=== PATIENT | male | born 1985 | race Two or more races ===

== ENCOUNTER 2024-04-15 06:20 | Emergency (ER) | payer MEDICAID, SELFPAY ==
[2024-04-15] VITALS (8 sets, daily range): BP systolic 114–155; BP diastolic 88–98; PULSE 82–100; RESP 13–94; TEMP 36.7–36.9; O2SAT 90–95; BMI 45.9
--- NOTE | 2024-04-15 06:40 | XR_ITS ---
Examination: PA lateral chest 2 views Technique: Upright PA lateral chest 2 views Exam date and time: April 15, 2024 at 0716 hrs. Indications: Coughing beginning 2 weeks ago. Findings: Atelectasis and/or pneumonia in the lingular segment left upper lobe Right lung clear Normal heart size Impression: Atelectasis and/or pneumonia in the lingular segment left upper lobe, clinical correlation advised
--- NOTE | 2024-04-15 06:44 | PD.EDRME ---
Rapid Medical Screening Exam [facility] Arrival date/time: 04/15/24 06:20 38-year-old male with no known medical history presents to the emergency room with a chief complaint of difficulty breathing, difficulty swallowing, and a swollen uvula. Patient states his symptoms began this morning when he woke up. Patient states she has had URI signs and symptoms for the last week including difficulty breathing, coughing, congestion, intermittent fevers. I have greeted and performed a focused initial assessment of this patient. A comprehensive ED assessment and evaluation of the patient, analysis of all test results, and completion of the medical decision making process will be conducted by additional ED providers. Chief Complaint: Dental/Oral/Throat Time Seen by Provider: 04/15/24 06:30 Vital signs: Vital Signs Temperature 98.3 F 04/15/24 06:30 Pulse Rate 85 04/15/24 06:30 Respiratory Rate 18 04/15/24 06:30 Blood Pressure 155/98 H 04/15/24 06:30 Pulse Oximetry (%) 93 L 04/15/24 06:30 Oxygen Delivery Method Room Air 04/15/24 06:30 Vital signs reviewed by provider: Yes
[2024-04-15 07:25] LABS: Strep A Rapid Negative (Negative)
[2024-04-15] MEDS: DEXAMETHASONE SOD PHOS INJ 10 MG/ML VIAL PO (07:39)
[2024-04-15] MEDS: cefTRIAXone 1,000 MG, LIDOCAINE 1% 20 ML 2.1 ML IM (07:40)
--- NOTE | 2024-04-15 08:36 | PD.EDADULT ---
ED General RME/HPI General Chief complaint: Dental/Oral/Throat Stated complaint: THE THING IN THE BACK OF MY THROAT IS SWOLLEN Time Seen by Provider: 04/15/24 06:30 Arrival date/time: 04/15/24 06:20 RME / HPI RME / HPI narrative: 04/15/24 06:20 38-year-old male with no known medical history presents to the emergency room with a chief complaint of difficulty breathing, difficulty swallowing, and a swollen uvula. Patient states his symptoms began this morning when he woke up. Patient states she has had URI signs and symptoms for the last week including difficulty breathing, coughing, congestion, intermittent fevers. I have greeted and performed a focused initial assessment of this patient. A comprehensive ED assessment and evaluation of the patient, analysis of all test results, and completion of the medical decision making process will be conducted by additional ED providers. DR. MOTA MAIN ED EVALUATION: 38 year old male with no past medical history except cocaine abuse (last used in the last 2 weeks) presents to the Emergency Department with complaints of sore throat, back of the throat swelling, fevers intermittently for last 2 weeks, and a productive cough. He does have sick contacts, his father was admitted for some respiratory disease, thinks he had the flu. Denies any shortness of breath or other symptoms at this time. Related Data Previous Rx's ?Medication ?Instructions ?Recorded albuterol sulfate 90 mcg/actuation 2 - 3 puff inhalation Q3H PRN 04/15/24 aerosol inhaler shortness of breath or wheezing #8.5 grams azithromycin 250 mg tablet See Rx Instructions PO .COMPLEX #6 04/15/24 (Zithromax Z-Shaka) tabs prednisone 20 mg tablet 40 mg (2 x 20 mg) PO QDAY Asthma 5 04/15/24 days #10 tabs Allergies Allergy/AdvReac Type Severity Reaction Status Date / Time No Known Allergies Allergy Verified 04/15/24 06:22 Review of Systems Review of Systems Systems Reviewed: All systems reviewed, normal except as documented Narrative Review of Systems: GEN: + intermittently fevers, no chills, no weight loss EYES: No discharge, no visual changes, no pain HEENT: No ear pain, no congestion, + sore throat, + back of the throat swelling PULM: No shortness of breath, + cough, + congestion CV: No chest pain, no dyspnea on exertion, no palpitations GI: No nausea, no vomiting, no diarrhea, no pain, no constipation : No frequency, no urgency and no dysuria MUSC/SKEL: No joint pain, no back pain SKIN: No rash PSYCH: No hallucinations, no depression HEME/LYMPH: No easy bleeding or bruising tendencies NEURO: No weakness, no headache Past Medical History Past Medical History GASTROINTESTINAL: 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 O2 sats mid to low 90s on room air the patient is non-toxic, in no apparent distress and appears healthy with a patent airway, no respiratory distress and has no apparent circulatory problems. Head & Scalp: Normocephalic, atraumatic. Face: Appears normal and is without lesions, deformity. Ears: Left external pinna appears normal. Right external pinna appears normal. Eyes: The sclera is anicteric. No obvious photophobia. The Left and Right Orbit/Lid/Conjunctiva appears normal without swelling, discoloration or injection. Nose: The nose is without deformity, discharge or tenderness; Throat: The uvula and the soft palate have erythema along with of bilateral tonsillar fossa's with no exudates seen. Airway is patent there is no uvular deviation. The tongue appears normal. Neck: The neck is supple and no apparent mass or adenopathy. Chest: The chest wall is normal in size and symmetry and has no chest wall tenderness or crepitus. The patient displays normal ventilator effort has coughing when takes deep breath and obvious wheezes are heard in the right base greater than the left. No bronchial breath sounds are heard. Cardiovascular: Regular rate and rhythm; No murmurs, rubs, or gallops; Gastrointestinal: The abdomen appears normal. No obvious hernias or mass. The abdomen is soft and benign, non-distended, with no pain, no guarding and no rebound tenderness. Bowel sounds are present and normal sounding. No CVA tenderness. Genitourinary: Back/Spine: Normal inspection Extremities/Musculoskeletal/lymphatic: The bilateral upper and lower extremities are warm. There is no evidence of arterial insufficiency. There is no evidence of venous insufficiency/edema. The patient spontaneously moves bilateral upper and lower extremities with no pain and no limitation of movement. There is no apparent, injury or trauma. Skin: The skin is warm, dry and intact. No rashes. No petechia. No purpura. No abnormal bruising. The color is appropriate with no cyanosis. Mental status/Psychiatric: Mental status is appropriate for age. The patient has no apparent delusions, visual hallucinations, no apparent audible hallucinations. The patient has no apparent suicidal thoughts/ideation and no apparent homicidal thoughts/ideation. Neurological: The patient is awake, alert, interactive, cordial, cooperative and is oriented to name and situation. The patient follows commands and answers historical question with no impairment. There is no visual disturbance apparent. The pupils are equal and reactive bilaterally with normal eye movements and no diplopia The bilateral upper and lower extremities have normal strength, normal range of motion and normal functioning. The gait, station and balance appear to be baseline with no acute change Course Quality Measures none Orders Category Date Time Status Bedside COVID-19 Antigen Test NOW Care 04/15/24 06:40 Completed Bedside Influenza A&B Antigen Test NOW Care 04/15/24 06:40 Completed Capper Machine Operator STAT Care 04/15/24 08:47 Active Continuous Pulse Oximetry STAT Care 04/15/24 08:47 Completed Incentive Spirometry Treatment NOW Care 04/15/24 09:27 Active Miscellaneous Nursing Order NOW Care 04/15/24 08:47 Active XR chest 2V Stat Exams 04/15/24 06:40 Completed B-Type Natriuretic Peptide Stat Lab 04/15/24 09:00 Completed Blood Culture (Lab) Stat Lab 04/15/24 09:15 Received CBC Stat Lab 04/15/24 09:00 Completed Comprehensive Metabolic Panel Stat Lab 04/15/24 09:00 Completed Lactate (Lactic Acid) Stat Lab 04/15/24 09:00 Completed Magnesium Stat Lab 04/15/24 09:00 Completed Strep A Rapid Stat Lab 04/15/24 06:47 Completed Troponin I Stat Lab 04/15/24 09:00 Completed Urinalysis Stat Lab 04/15/24 10:58 Completed Venous Blood Gas Stat Lab 04/15/24 09:00 Completed ALBUTEROL RT 0.5ml [Proventil Rt 0.5ml] Med 04/15/24 08:46 Discontinued 10 mg INH X1 ONE Dexamethasone Inj [Decadron Inj] Med 04/15/24 06:40 Discontinued 10 mg PO X1 ONE Sodium Chloride Rt Magalys 0.9% [NS Rt Magalys 0.9%] Med 04/15/24 08:46 Active 3 ml INH PRN PRN cefTRIAXone [Rocephin] 1,000 mg Med 04/15/24 06:44 Discontinued Lidocaine 1% 20 ml [Xylocaine 1% 20 ML] 2.1 ml IM X1 Vital Signs Vital signs: Vital Signs Temperature 98.3 F 04/15/24 06:30 Pulse Rate 85 04/15/24 06:30 Respiratory Rate 18 04/15/24 06:30 Blood Pressure 155/98 H 04/15/24 06:30 Pulse Oximetry (%) 93 L 04/15/24 06:30 Oxygen Delivery Method Room Air 04/15/24 06:30 [facility] Patient data External records reviewed:: None (no previous visits) Clinical information provided by:: patient Social determinants that could affect healthcare access:: substance use (cocaine) Patient has the following chronic illnesses:: Denies any PMHx, surgeries, daily medications, or known allergies. How is presenting disease/condition affected by chronic disease/condition?: no chronic disease Evaluation data The following diagnostics were reviewed and interpreted by me:: lab results and radiology exam(s) Lab and/or radiology exams considered but not ordered:: none Interpretation Summary: See above under [facility] narrative. RADIOLOGY Procedure(s): XR chest 2V Accession Number(s): [id number] cc: Solo Jo; Abilio Clark MD; Dariela Leo NP~ Examination: PA lateral chest 2 views Technique: Upright PA lateral chest 2 views Exam date and time: April 15, 2024 at 0716 hrs. Indications: Coughing beginning 2 weeks ago. Findings: Atelectasis and/or pneumonia in the lingular segment left upper lobe Right lung clear Normal heart size Impression: Atelectasis and/or pneumonia in the lingular segment left upper lobe, clinical correlation advised Dictated By: Abilio Clark MD Medications Medications considered but not ordered:: none Medication administrations:: Medication Administration History Sodium Chloride (Sodium Chloride Rt Magalys 0.9% 3 Ml Nebu) 3 ml INH PRN PRN PRN Reason: SOLN Stop: 05/15/24 08:45 Last Admin: 04/15/24 09:02 Dose: 3 ml Documented By: DAILY Discontinued Medications Albuterol (Albuterol Rt 2.5 Mg/0.5 Ml Nebu) 10 mg INH X1 ONE Stop: 04/15/24 08:47 Last Admin: 04/15/24 09:02 Dose: 10 mg Documented By: DAILY Ceftriaxone Sodium 1,000 mg/ (Lidocaine HCl 2.1 ml) 0 mg IM X1 ONE Stop: 04/15/24 06:45 Last Admin: 04/15/24 07:40 Dose: 2.1 mg Documented By: KEMAL Dexamethasone Sodium Phosphate (Dexamethasone Sod Phos Inj 10 Mg/Ml Vial) 10 mg PO X1 ONE Stop: 04/15/24 06:41 Last Admin: 04/15/24 07:39 Dose: 10 mg Documented By: KEAML Comments: given orally see above Consultations Consultation(s) initiated? (list below): No Diagnosis Differential Diagnosis ED Complaint MDM: pneumonia, COVID, Influenza, sepsis Most likely diagnosis given after review of the tests above:: See below Admission Indicated Admission indicated?: not indicated Explain why admission is indicated or not indicated:: Patient has no emergent abnormalities on his studies and can be managed on an outpatient basis. Admission Request Was there a request for admission?: No Disposition Plan Disposition Plan: Discharge Discharge Attestation Discharge Attestation: The patient and all family members were given an opportunity to ask questions and understood the discharge instructions. Discharge instructions specifically effects, indications for sooner follow up or return to the emergency department, and the expected course of current diagnosis. Patient condition: Stable Medical Decision Making MDM Narrative MDM Narrative: I, Carlita Pritchett, am scribing for and in the presence of Dr. Mota. Patient 38-year-old who comes in with erythema on his soft palate and uvula with some swelling but no airway compromise. Who also has had a cough for 2 weeks and has left lower lobe either within atelectasis and/or consolidation but more impressively is got some mild wheezing in the bases. I think he would benefit from a breathing treatment and this will help with his 2 weeks old cough patient does admit to using cocaine. Because of this to get some additional lab studies Fortunately patient's O2 sats are within normal limits. Does not appear to be any distress. Patient had a nebulizer treatment with with had continuous nebs and patient tolerated well and his breath sounds were much improved with minimal wheezes afterwards and the lungs are clear enough that I can actually hear the crackles in the left base which are seen on the x-ray. Should be noted after nebulizer treatment the patient's O2 sats were noted to be 90 to 91% on room air and nurse informed me of this. I went in the room had him take some deep breaths and his O2 sats went up to 9697%. Soon after that it was noted that his oxygenation again dropped down to 9091% and we given incentive spirometer had him use that a few times and we watched him for another hour at 1300 hrs. patient's O2 sats are averaging 97% with a good waveform. Patient ambulated the halls with good vital signs feels good and wants to go home. Patient appears to have a left lower lobe pneumonia some atelectasis and/or early consolidation with some minimal sputum production and an O2 sat seem to be stable after the initial breathing treatment. Will send him home with some steroids nebulizer and some azithromycin for 5 days. They will follow-up with his regular doctor. Differential Diagnosis Differential Diagnosis: pneumonia, COVID, Influenza, sepsis Lab Data 04/15/24 09:00 04/15/24 09:00 Labs: Lab Results 04/15/24 04/15/24 04/15/24 Range/Units 06:47 09:00 10:58 WBC 10.1 (3.8-10.6) Thou/mm3 RBC 5.56 (4.50-5.90) Miln/mm3 Hgb 14.8 (13.5-16.0) g/dL Hct 45.0 (41.0-53.0) % MCV 81 (80-100) fL MCH 26.6 (25.0-35.0) pg MCHC 32.9 (31.0-37.0) g/dl RDW Std Deviation 39.9 (35.1-43.9) fL Plt Count 367 (140-440) Thou/mm3 Neut % (Auto) 74 (37-80) % Lymph % (Auto) 19 (10-50) % [place] % (Auto) 4 (0-12) % Eos % (Auto) 3 (0-10) % Baso % (Auto) 0 (0-2.5) % Neut # (Auto) 7.4 (1.8-7.7) Thou/mm3 Lymph # (Auto) 1.9 (1.0-4.8) Thou/mm3 [place] # (Auto) 0.4 (0.0-0.8) Thou/mm3 Eos # (Auto) 0.3 (0.0-0.5) Thou/mm3 Baso # (Auto) 0.0 (0.0-0.2) Thou/mm3 Immature Gran # (Auto) 0.04 H (0.00-0.00) Thou/mm3 Absolute Nucleated RBC 0.00 (0.00-0.00) Thou/mm3 Immature Gran % 0 (0-0) % Nucleated RBC % 0 (0) /100 WBC VBG pH 7.37 (7.33-7.66) VBG pCO2 49 (36-56) mmHg VBG pO2 43 (15-58) mmHg VBG O2 Sat ([place]) 79 L (96-97) % VBG Base Excess 2 (-3-3) Sodium 140 (136-145) mMol/L Potassium 4.2 (3.4-5.1) mMol/L Chloride 106 (98-107) mMol/L Carbon Dioxide 27.7 (20.0-31.0) mMol/L Anion Gap 6 L (7-16) BUN 17 (9-23) mg/dL Creatinine 0.8 (0.6-1.3) mg/dL Estim Creat Clear Calc 180.4 (>60) mL/min eGFR > 60 (60 - ) See Note BUN/Creatinine Ratio 21 H (12-20) Ratio Glucose 114 H (74-106) mg/dL Calculated Osmolality 281 (275-295) Lactic Acid 0.8 (0.4-2.0) mMol/L Calcium 8.8 (8.3-10.6) mg/dL Corrected Calcium 8.8 (8.5-10.1) mg/dL Magnesium 2.0 (1.6-2.6) mg/dL Total Bilirubin 0.6 (0.3-1.2) mg/dL AST 15 (0-34) U/L ALT 22 (10-49) U/L Alkaline Phosphatase 68 (46-116) U/L Troponin I < 0.002 (0.0-0.045) ng/mL B-Natriuretic Peptide < 20 (0-100) pg/mL Total Protein 7.2 (5.7-8.2) gm/dL Albumin 4.0 (3.5-5.0) gm/dL Globulin 3.2 (2.3-3.5) gm/dL Albumin/Globulin Ratio 1.3 (1.2-2.2) Ur Collection Type Clean Catch Urine Color Lt-Green A (Lt Yel-Yel) Urine Clarity Clear (Clear/Hazy) Urine pH 7.0 (5.0-7.0) Ur Specific [employer] 1.026 (1.001-1.035) Urine Protein Negative (Neg - Trace) Urine Glucose (UA) Negative (Negative) Urine Ketones 1+ A (Negative) Urine Blood Negative (Negative) Urine Nitrite Negative (Negative) Urine Bilirubin Negative (Negative) Urine Urobilinogen (Auto) Negative (0.0-1.0) mg/dL Ur Leukocyte Esterase Negative (Negative) Urine RBC 2 (0-3) /hpf Urine WBC 1 (0-5) /hpf Ur Squamous Epith Cells < 1 (0-5) /hpf Urine Bacteria None (None) Group A Strep Rapid Negative (Negative) Critical Care Time Critical Care Time Critical Care Time: Yes Total Critical Care Time (min.): 45 Attestation: The high probability of sudden, clinically significant deterioration in the patient?s condition required the highest level of my preparedness to intervene urgently. The services I provided to this patient were to treat and/or prevent clinically significant deterioration. Services included the following: chart data review, reviewing nursing notes and/or old charts, documentation time, party plan sales consultant collaboration regarding findings and treatment options, medication orders and management, direct patient care, vital sign assessments and ordering, interpreting and reviewing diagnostic studies and lab tests. Aggregate critical care time includes only time during which I was engaged in work directly related to the patient?s care, as described above, whether at bedside or elsewhere in the Emergency Department. It did not include time spent performing other reported procedures or the services of residents, students, nurses or physician assistants. Discharge Plan Plan Patient Disposition: HOME (Self Care) Prescriptions/Referrals Prescriptions/Med Rec: New albuterol sulfate 90 mcg/actuation HFA aerosol inhaler 2 - 3 puff inhalation Q3H PRN (Reason: shortness of breath or wheezing) Qty: 8.5 2RF prednisone 20 mg tablet 40 mg PO QDAY 5 Days Qty: 10 0RF azithromycin [Zithromax Z-Shaka] 250 mg tablet See Rx Instructions PO .COMPLEX Qty: 6 0RF Rx Instructions: take 500 mg today (day 1), then 250 mg for 4 days (days 2-5) Referrals: Dariela Leo BEHAVIOR SPECIALIST [Primary Care Provider] - In 1 week Problem List Clinical Impression: Lingular pneumonia, RAD (reactive airway disease), Cocaine abuse Patient/Caregiver Discharge Instructions Additional Instructions: As discussed you have a pneumonia in your left lung and some wheezing in your bilateral lungs. Your lungs are much improved after the breathing treatments. You got a dose of Rocephin today for your pneumonia I will send you home on antibiotics called azithromycin. Follow the instructions. They will be some prednisone to take for 5 days for the wheezing. Make an appoint with your doctor and have a recheck in 2 days and return if getting worse in any way. Print Language: Welsh Stand Alone Forms: [employer] Award Info., Patient Portal Info Letter
--- NOTE | 2024-04-15 08:45 | PC.NURSE ---
PT ROOMED FROM [facility] STATES HE HAS HAD A COUGH FOR 2 WEEKS, FEVER 2 WEEKS AGO, STATES HE HAS A COUGH WITH MUCUS PRODUCTION, SAYS HE CAME IN THIS MORNING BECAUSE HIS THROAT WAS SWOLLEN DENIED ANY PAIN. AAOX4 PT IS COMPLIANT AND COOPERATIVE
[2024-04-15] MEDS: SODIUM CHLORIDE RT SOL 0.9% 3 ML NEBU INH (09:02)
[2024-04-15] MEDS: ALBUTEROL RT 2.5 MG/0.5 ML NEBU 10 MG INH (09:02)
[2024-04-15 09:21] LABS: Base Excess, Venous 2 (-3-3); O2 Saturation, Venous 79 % (96-97); PCO2, Venous 49 mmHg (36-56); PO2, Venous 43 mmHg (15-58); pH, Venous 7.37 (7.33-7.66)
[2024-04-15 09:22] LABS: Lactate (Lactic Acid) 0.8 mMol/L (0.4-2.0)
[2024-04-15 09:28] LABS: Basophils % (Auto) 0 % (0-2.5); Eosinophils # (Auto) 0.3 Thou/mm3 (0.0-0.5); Eosinophils % (Auto) 3 % (0-10); Hemoglobin 14.8 g/dL (13.5-16.0); Immature Granulocytes % (Auto) 0 % (0-0); Immature Granulocytes Auto 0.04 Thou/mm3 (0.00-0.00); Lymphocytes # (Auto) 1.9 Thou/mm3 (1.0-4.8); Lymphocytes % (Auto) 19 % (10-50); Mean Corpuscular HGB Conc 32.9 g/dl (31.0-37.0); Mean Corpuscular Hemoglobin 26.6 pg (25.0-35.0); Mean Corpuscular Volume 81 fL (80-100); Monocytes # (Auto) 0.4 Thou/mm3 (0.0-0.8); Monocytes % (Auto) 4 % (0-12); Neutrophils # (Auto) 7.4 Thou/mm3 (1.8-7.7); Neutrophils % (Auto) 74 % (37-80); Nucleated Red Blood Cell % 0 /100 WBC (0); Platelet Count 367 Thou/mm3 (140-440); RDW Standard Deviation 39.9 fL (35.1-43.9); Red Blood Count 5.56 Miln/mm3 (4.50-5.90); White Blood Count 10.1 Thou/mm3 (3.8-10.6)
[2024-04-15 09:39] LABS: B-Type Natriuretic Peptide < 20 pg/mL (0-100)
[2024-04-15 09:41] LABS: Alanine Aminotransferase 22 U/L (10-49); Albumin/Globulin Ratio 1.3 (1.2-2.2); Alkaline Phosphatase 68 U/L (46-116); Anion Gap 6 (7-16); Aspartate Amino Transferase 15 U/L (0-34); BUN/Creatinine Ratio 21 Ratio (12-20); Bilirubin,Total 0.6 mg/dL (0.3-1.2); Blood Urea Nitrogen 17 mg/dL (9-23); Calcium 8.8 mg/dL (8.3-10.6); Calcium (Corrected) 8.8 mg/dL (8.5-10.1); Carbon Dioxide 27.7 mMol/L (20.0-31.0); Chloride 106 mMol/L (98-107); Creatinine (Component) 0.8 mg/dL (0.6-1.3); Estimated Creatinine Clearance 180.4 mL/min (>60); Globulin 3.2 gm/dL (2.3-3.5); Glucose 114 mg/dL (74-106); Osmolality,Calculated 281 (275-295); Potassium 4.2 mMol/L (3.4-5.1); Sodium 140 mMol/L (136-145); Total Protein 7.2 gm/dL (5.7-8.2); Troponin I < 0.002 ng/mL (0.0-0.045); eGFR > 60 See Note
--- NOTE | 2024-04-15 11:00 | PC.NURSE ---
NOTIFIED PROVIDER DR. RAGSDALE PT O2 AT 88 PROVIDER HAD PT USE IS AND BRANDON BREATHE CONTINUE TO MONITOR FOR DROP OF SAT %
--- NOTE | 2024-04-15 11:15 | PC.NURSE ---
PT 02 WAS AT 88% ADVISED PT TO USE IS AND DEEP BREATH O2 SAT 94 % AFTER ON ROOM AIR.
[2024-04-15 11:32] LABS: Collection Type, Urine Clean Catch
[2024-04-15 12:15] LABS: Bilirubin,Urine Negative (Negative); Blood,Urine Negative (Negative); Clarity,Urine Clear (Clear/Hazy); Color,Urine Lt-Green (Lt Yel-Yel); Glucose, Urine Negative (Negative); Ketones,Urine 1+ (Negative); Leukocyte Esterase,Urine Negative (Negative); Nitrite,Urine Negative (Negative); Protein,Urine Negative (Neg - Trace); RBC,Urine 2 /hpf (0-3); Specific Gravity,Urine 1.026 (1.001-1.035); Squamous Epithelial Cell,Urine < 1 /hpf (0-5); Urobilinogen,Urine Negative mg/dL (0.0-1.0); WBC,Urine 1 /hpf (0-5)
--- NOTE | 2024-04-15 13:27 | PD.EDADDENDU ---
Emergency Room Addendum Addendum Narrative: Note patient to ambulate in the hallways without any distress O2 sats were still in the upper 90s. He smiley wants to go home he is got 3 prescription filled up at the pharmacy and he is aware and will follow-up
== END 2024-04-15 14:19 | disposition home or self-care (01) ==
PROVIDERS: Nurse Practitioner Family; Emergency Provider Emergency Medicine; PCP Nurse Practitioner Family
DX: J18.9 Pneumonia, unspecified organism (principal); J45.909 Unspecified asthma, uncomplicated; F14.10 Cocaine abuse, uncomplicated
CPT/HCPCS: 36415; 71046; 80053; 81001; 82803; 83605; 83735; 83880; 84484; 85025; 87040; 87400; 87651; 87811; 94644; 96372; 99283; J0696; J1100; J3490